=== PATIENT | male | born 2000 | race Caucasian/White ===

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

== ENCOUNTER 2023-09-11 14:56 | Outpatient (CLI) | payer OTHER ==
[2023-09-11 15:37] LABS: BASOPHILS % (AUTO) 0.4 % (0.0-2.0); EOSINOPHILS % (AUTO) 0.3 % (0.0-4.0); HEMATOCRIT 42.6 % (36-52); HEMOGLOBIN 14.9 g/dL (12.0-18.0); LYMPHOCYTES # (AUTO) 1.5 K/uL (2.0-11.5); LYMPHOCYTES % (AUTO) 13.5 % (20.5-51.1); MEAN CORPUSCULAR HEMOGLOBIN 30 pg (27-31); MEAN CORPUSCULAR HGB CONC 35 g/dL (33-37); MEAN CORPUSCULAR VOLUME 85.1 fL (80-94); MONOCYTES # (AUTO) 0.4 K/uL (0.8-1.0); NEUTROPHILS % (AUTO) 81.8 % (42.2-75.2); PLATELET COUNT (AUTO) 321 K/uL (140-450); RED CELL DISTRIBUTION WIDTH 14.3 % (11.6-13.7)
[2023-09-11 15:51] LABS: APPEARANCE,URINE CLEAR (CLEAR); BILIRUBIN,URINE NEGATIVE (NEGATIVE); BLOOD, URINE NEGATIVE (NEGATIVE); COLOR,URINE YELLOW (YELLOW); LEUKOCYTE ESTERASE ,URINE NEGATIVE (NEGATIVE); NITRITE, URINE NEGATIVE (NEGATIVE); PROTEIN,URINE NEGATIVE (NEGATIVE); UGLUCOSE NEGATIVE (NEGATIVE); UROBILINOGEN,URINE 0.2 EU/dL (0.2 - 1)
[2023-09-11 15:59] LABS: ALBUMIN 4.1 g/dL (3.4-5.0); ANION GAP 10.3 (8-16); CALCIUM 9.2 mg/dL (8.5-10.1); CARBON DIOXIDE 31.2 mmol/L (21-32); CREATININE 0.8 mg/dL (0.6-1.3); POTASSIUM 4.5 mmol/L (3.5-5.1); THYROID STIMULATING HORMONE 0.37 uIU/mL (0.34-3.74); TOTAL BILIRUBIN 0.1 mg/dL (0.0-1.0); TOTAL PROTEIN, SERUM 7.9 g/dL (6.4-8.2)
[2023-09-12 09:07] LABS: HEMOGLOBIN A1C 5.6 % (4.8-5.6); HIV 1/0/2 ABS, QUAL Non Reactive (Non Reactive); T4 FREE (DIRECT) 1.35 ng/dL (0.82-1.77)
[2023-09-12 10:38] LABS: RAPID PLASMA REAGIN NON-REACTIVE (Non Reactiv)
== END 2023-09-11 22:47 | disposition home or self-care (01) ==
LOC: MLB 14:56
PROVIDERS: ATTEND Family Medicine Geriatric Medicine
DX: Z13.29 Encounter for screening for other suspected endocrine disorder (principal); Z11.3 Encounter for screening for infections with a predominantly sexual mode of transmission; Z13.228 Encounter for screening for other metabolic disorders; Z13.220 Encounter for screening for lipoid disorders; Z13.0 Encounter for screening for diseases of the blood and blood-forming organs and certain disorders involving the immune mechanism; Z13.1 Encounter for screening for diabetes mellitus; Z72.89 Other problems related to lifestyle
CPT/HCPCS: 36415; 71046; 80053; 81003; 83036; 84439; 84443; 85025; 86592; 86702; 87491